=== PATIENT | female | born 1955 | race Caucasian/White ===

== ENCOUNTER 2016-10-01 16:57 | Emergency (ER) | payer MEDICAID ==
[~2016-10-01] VITALS: Ht 157.5 cm; Wt 67.9 kg
[~2016-10-01 16:57] MED LIST: CIPR500T4 PO; IBUP800T25 PO; METF-382 PO; METR500T PO; ULT50 PO
[2016-10-01 17:00] VITALS: Ht 157.5 cm; Wt 67.9 kg
[2016-10-01] MEDS ORDERED: BELLADONNA/PHENOBARBITAL TAB PO STA (20:39)
[2016-10-01] MEDS ORDERED: LIDOCAINE/MYLANTA 40 ML BTL PO STA (20:39)
[2016-10-01] MEDS ORDERED: FAMOTIDINE 20 MG TAB PO STA (20:39)
[2016-10-01 21:35] LABS: ALBUMIN 4.4 g/dl (3.3-4.9); POTASSIUM 4.5 mmol/L (3.5-5.1)
[2016-10-01 21:38] LABS: ALBUMIN/GLOBULIN RATIO 1.12; BILIRUBIN,INDIRECT 0.2 mg/dl (0-1.1); BILIRUBIN,TOTAL 0.2 mg/dl (0.2-1.3); CALCIUM 9.6 mg/dl (8.4-10.2); CREATININE 0.66 mg/dl (0.44-1.00); TOTAL PROTEIN 8.3 g/dl (6.1-8.1)
[2016-10-01 22:00] LABS: BASOPHILS % 0.4 % (0.0-2.0); EOSINOPHILS # 0.2 10^3/ul (0.0-0.5); EOSINOPHILS % 2.4 % (0.0-7.0); HEMATOCRIT 41.8 % (37.0-47.0); HEMOGLOBIN 14.1 g/dl (12.0-16.0); LYMPHOCYTES # 3.1 10^3/ul (0.8-2.9); LYMPHOCYTES % 33.9 % (15.0-51.0); MEAN CORPUSCULAR HEMOGLOBIN 29.4 pg (29.0-33.0); MEAN CORPUSCULAR HGB CONC 33.8 g/dl (32.0-37.0); MEAN PLATELET VOLUME 7.9 fl (7.4-10.4); MONOCYTE # 0.9 10^3/ul (0.3-0.9); MONOCYTES % 10.4 % (0.0-11.0); NEUTROPHIL # 4.8 10^3/ul (1.6-7.5); NEUTROPHILS % 52.9 % (39.0-77.0); PLATELET COUNT 448 10^3/UL (140-440); RED CELL DISTRIBUTION WIDTH 13.9 % (11.5-14.5)
[2016-10-01 22:03] LABS: CONDITION 1; NUCLEATED RED BLOOD CELLS # 0.2 10^3/ul (0.0-0.0)
[2016-10-01] MEDS ORDERED: SUCR1TAB56 PO (22:09)
--- NOTE | 2016-10-01 22:15 | ERD ---
ER Documentation Chief Complaint Date/Time DATE: 10/01/16 TIME: 22:12 Chief Complaint AP, HERE ON Aug C/O SAME, HAD LABS,CT HPI 61-year-old female who presents the emergency room with abdominal pain. The patient has a history of chronic abdominal pain for greater than 3 years. She describes it as left-sided upper and lower quadrant. The symptoms are usually worse with eating but somewhat constant. The patient was seen here on September 07 and diagnosed with acute diverticulitis no normal white count and normal CT where shown. The patient completed medications but still has symptoms. She denies any nausea vomiting or diarrhea, no constipation. No chest pain no exertional symptoms and no shortness of breath. ROS All systems reviewed and are negative except as per history of present illness. Medications Home Meds Active Scripts Sucralfate* (Carafate*) 1 Gm Tab, 1 GM PO QID Y for Abdominal pain for 30 Days, TAB Prov:AMANDA THOMPSON MD 10/01/16 Reported Medications Metformin Hcl* (Metformin Hcl*) 500 Mg Tablet, 500 MG PO WITH BREAKFAST DINNE, # 60 TAB 09/07/16 Ibuprofen* (Ibuprofen*) 800 Mg Tab, 800 MG PO TID Y for prn, TAB 09/07/16 Discontinued Scripts Tramadol HCl (Tramadol HCl) 50 Mg Tablet, 50 MG PO Q4 Y for PAIN, #20 TAB Prov:MARGY JOSE. 09/08/16 Metronidazole* (Flagyl*) 500 Mg Tablet, 500 MG PO TID for 7 Days, TAB Prov:MARGY JOSE 09/08/16 Ciprofloxacin Hcl* (Ciprofloxacin Hcl*) 500 Mg Tablet, 500 MG PO BID for 7 Days , TAB Prov:MARGY JOSE 09/08/16 Allergies Allergies: Coded Allergies: No Known Drug Allergies (Verified Allergy, Mild, 10/01/16) PMhx/Soc History of Surgery: Yes ( X2, cholecystectomy, splenectomy, partial pancreas removed) Anesthesia Reaction: No Hx Neurological Disorder: No Hx Respiratory Disorders: No Hx Cardiac Disorders: No Hx Psychiatric Problems: No Hx Miscellaneous Medical Probl: Yes (DM, HYPERLIPIDEMIA, GERD, diverticulitis, UTI) Hx Alcohol Use: No Hx Substance Use: No Hx Tobacco Use: No Smoking Status: Current every day smoker FmHx Family History: No diabetes Physical Exam Vitals Vital Signs Date Time Temp Pulse Resp B/P Pulse Ox O2 Delivery O2 Flow Rate FiO2 10/01/16 17:00 98.1 86 20 123/86 99 Physical Exam General: Well developed, well nourished, no acute distress Head: Normocephalic, atraumatic. Eyes: Pupils equally reactive, EOM intact ENT: Moist mucous membranes Neck: Supple, no lymphadenopathy Respiratory: Lungs clear bilaterally, no distress Cardiovascular: RRR, no murmurs, rubs, or gallops Abdominal: Soft, non-tender, non-distended, no peritoneal signs, negative Mercedes sign, no tenderness to McBurney's point : Deferred MSK: No edema, no unilateral swelling, 5/5 strength Neurologic: Alert and oriented, moving all extremities, normal speech, no focal weakness, no cerebellar signs Skin: No rash Psych: Normal mood Result Diagram: 10/01/16204410/01/162044 Results 24 hrs Laboratory Tests Test 10/01/16 20:45 Alanine Aminotransferase (ALT/SGPT) 31IU/L Albumin 4.4g/dl Albumin/Globulin Ratio 1.12 Alkaline Phosphatase 90IU/L Anion Gap 17 Aspartate Amino Transf (AST/SGOT) 31IU/L Basophils # 0.010^3/ul Basophils % 0.4% Blood Urea Nitrogen 15mg/dl Calcium Level 9.6mg/dl Carbon Dioxide Level 28mmol/L Chloride Level 104mmol/L Creatinine 0.66mg/dl Direct Bilirubin 0.00mg/dl Eosinophils # 0.210^3/ul Eosinophils % 2.4% Globulin 3.90g/dl Glucose Level 139mg/dl Hematocrit 41.8% Hemoglobin 14.1g/dl Indirect Bilirubin 0.2mg/dl Lipase 58U/L Lymphocytes # 3.110^3/ul Lymphocytes % 33.9% Mean Corpuscular Hemoglobin 29.4pg Mean Corpuscular Hemoglobin Concent 33.8g/dl Mean Corpuscular Volume 87.0fl Mean Platelet Volume 7.9fl Monocytes # 0.910^3/ul Monocytes % 10.4% Neutrophils # 4.810^3/ul Neutrophils % 52.9% Nucleated Red Blood Cells # 0.210^3/ul Nucleated Red Blood Cells % 2.0/100WBC Platelet Count 03373^3/UL Potassium Level 4.5mmol/L Red Blood Count 4.8010^6/ul Red Cell Distribution Width 13.9% Sodium Level 144mmol/L Total Bilirubin 0.2mg/dl Total Protein 8.3g/dl White Blood Count 9.010^3/ul Current Medications Medications (Trade) Dose Ordered Sig/Carolina Route PRN Reason Start Time Stop Time Status Last Admin Dose Admin Famotidine (Pepcid) 20 mg ONCE STAT PO 10/01/16 20:39 10/01/16 20:40 DC 10/01/16 20:54 Miscellaneous Medication (Gi Cocktail (2)) 40 ml ONCE STAT PO 10/01/16 20:39 10/01/16 20:40 DC 10/01/16 20:54 Belladonna/ Phenobarbital () 2 tab ONCE STAT PO 10/01/16 20:39 10/01/16 20:40 DC 10/01/16 20:54 Procedures/MDM LAB INTERPRETATION: No significant leukocytosis, no hepatobiliary obstruction, normal lipase MEDICAL DECISION MAKING: The patient presents with abdominal pain. It is left-sided. She has a benign abdominal exam. The patient has multiple visits the emergency room over the past several years for abdominal pain related issues. She has had 6 [address] scans during this timeframe all of which have been mostly unrevealing. The patient was treated clinically for acute diverticulitis in August but the patient's CT showed no evidence of acute diverticulitis and the patient had a normal white blood cell count. Today I do not believe that her symptoms are related to acute diverticulitis or perforation or abscess. The patient has a benign abdominal exam. I would like to avoid unnecessary repeat CT imaging given her multiple repeat CAT scans. ER COURSE: The patient's laboratory testing is unrevealing. The patient was given a GI cocktail with improved symptoms. It is most likely related to GI process. She does state a possible endoscopy and colonoscopy approximately 5 years ago. I believe it is extremely reasonable that the patient see her primary care physician receive referral to GI specialist for possible repeat endoscopy. This is possibly related to peptic ulcer disease versus gastritis versus H. pylori. Further imaging including MRI may be indicated if patient has continued pain though did this should be directed through your primary care doctor. I kept the patient and/or family informed of laboratory and diagnostic imaging results throughout the emergency room course. DISPOSITION PLAN: We discussed follow up with the patient's primary care doctor within 24 to 48 hours as needed. We also discussed return to the emergency room for worsening symptoms or worsening condition. Discharge Medications: Sucralfate Departure Diagnosis: Primary Impression: Abdominal pain Abdominal location: generalized Qualified Code: R10.84 - Generalized abdominal pain Condition: Stable Patient Instructions: Abdominal Pain Referrals: BUD PARKINSON MD, MORDO MD [facility] ([place]) Usted se jaimes hecho un examen mdico de control que le indica que no est en kristen condicin que requiera tratamiento urgente en el Departamento de Emergencia. Un estudio ms profundo y el tratamiento de diane condicin pueden esperar sin ningn riesgo hasta que usted sea atendida/o en el consultorio de diane mdico o kristen cl verónica. Es responsabilidad suya arreglar kristen edmond para el seguimiento del cathy. MANEJO DE CONDICIONES NO URGENTES EN EL FUTURO 1) Si usted tiene un mdico de atencin primaria: Usted debera llamar a diane mdico de atencin primaria antes de venir al departamento de emergencia. Despus de las horas de consultorio, diane doctor o diane asociado/a est disponible por telfono. El mdico o enfermero de murtaza en el servicio telefnico puede asesorarle por sania medio para atender el problema, o cathy contrario se puede programar kristen edmond. 2) Si usted no tiene un mdico de atencin primaria: Llame al mdico o clnica de referencia que aparece abajo kirit las horas de consultorio para hacer kristen edmond para que le vean. CLINICAS: [facility] [phone] [facility] 577 [phone] [address] [facility] [phone] [address] [facility] [phone] [facility] [place] [phone] [facility] [phone] [address] [facility] () Usted se jaimes hecho un examen mdico de control que le indica que no est en kristen condicin que requiera tratamiento urgente en el Departamento de Emergencia. Un estudio ms profundo y el tratamiento de diane condicin pueden esperar sin ningn riesgo hasta que usted sea atendida/o en el consultorio de diane mdico o kristen cl verónica. Es responsabilidad suya arreglar kristen edmond para el seguimiento del cathy. MANEJO DE CONDICIONES NO URGENTES EN EL FUTURO 1) Si usted tiene un mdico de atencin primaria: Usted debera llamar a diane mdico de atencin primaria antes de venir al departamento de emergencia. Despus de las horas de consultorio, diane doctor o diane asociado/a est disponible por telfono. El mdico o enfermero de murtaza en el servicio telefnico puede asesorarle por sania medio para atender el problema, o cathy contrario se puede programar kristen edmond. 2) Si usted no tiene un mdico de atencin primaria: Llame al mdico o condado institucions de referencia que aparece abajo kirit las horas de consultorio para hacer kristen edmond para que le vean. SI USTED NO PUEDE PAGAR PARA ADITYA UN MEDICO puede ir a: [facility] [address] [place] [address] [facility] [address] [place] [address] [facility] [address] [place] [address] [facility] [address] [place] [address] Additional Instructions: You should follow-up with her primary care physician as soon as possible. A referral to a GI specialist for your chronic abdominal pain is most important. Return for any fevers chills or uncontrolled pain. AMANDA THOMPSON MD Oct 01, 2016 22:15
[2016-10-01 22:16] VITALS: BP 125/78; PULSE 73; RESP 18; TEMP 98.3
== END 2016-10-01 22:17 | disposition home or self-care (01) ==
LOC: E/R 16:57
DX: R10.84 Generalized abdominal pain (principal); E11.9 Type 2 diabetes mellitus without complications; F17.210 Nicotine dependence, cigarettes, uncomplicated; Z79.84 Long term (current) use of oral hypoglycemic drugs
CPT/HCPCS: 80053; 83690; 85025; Z7502; Z7610; 99283

== ENCOUNTER 2017-11-21 20:23 | Emergency (ER) | END 2017-11-22 02:43 | disposition left against medical advice (07) ==

== ENCOUNTER 2017-11-22 09:34 | Emergency (ER) | END 2017-11-22 14:38 | disposition home or self-care (01) ==

== ENCOUNTER 2019-03-14 20:23 | Emergency (ER) | payer MEDICAID ==
[~2019-03-14] VITALS: Ht 152.4 cm; Wt 69.2 kg
[~2019-03-14 20:23] MED LIST changes: -CIPR500T4 PO; +CYCL5TAB PO; -IBUP800T25 PO; -METF-382 PO; +METF500T24 PO; -METR500T PO; +PRED20TA PO; -ULT50 PO
[2019-03-14 20:27] VITALS: Ht 152.4 cm; Wt 69.2 kg
[2019-03-14] MEDS ORDERED: IOHEXOL 300MG/ML 150 ML BTL ONE (23:02)
[2019-03-14] MEDS ORDERED: SOD CHLORIDE 0.9% 100 ML ONE (23:02)
--- NOTE | 2019-03-14 23:49 | ERD ---
ER Documentation Chief Complaint Chief Complaint LLQ ab pain today; hx fibroids HPI This is a 63-year-old female with a past medical history of hypertension, hyperlipidemia, diabetes, GERD, diverticulitis, recurrent UTIs, previous C- section, previous cholecystectomy, previous splenectomy, previous partial pancreatectomy, chronic abdominal pain, who is now presenting with progressive worsening left lower quadrant abdominal pain. She describes it as waxing and waning, moderate, sharp, aching, with no alleviating or exacerbating factors. The patient does not report any constipation or diarrhea. She does not endorse any black or bloody or tarry stools. She does reports burning dysuria with urinary frequency and urgency. She denies hematuria. She denies nausea or vomiting. The patient denies feeling sick recently. The patient denies fever or chills. The patient has had no headache or vision changes. The patient does not endorse neck or back pain. The patient denies lightheadedness or dizziness. The patient has had no chest pain or trouble breathing. The patient has had no focal deficits. The patient has had no weakness or numbness or tingling to the face or extremities. ROS All systems reviewed and are negative except as per history of present illness. Medications Home Meds Active Scripts Cyclobenzaprine Hcl* (Cyclobenzaprine Hcl*) 5 Mg Tablet, 5 MG PO Q8H PRN for spasm, #15 TAB Prov:YE DUMONT MD 11/22/17 Prednisone* (Prednisone*) 20 Mg Tab, 40 MG PO DAILY for 4 Days, TAB Prov:YE DUMONT MD 11/22/17 Reported Medications Metformin Hcl* (Metformin Hcl*) 500 Mg Tablet, 500 MG PO WITH BREAKFAST DINNE, #60 TAB 09/07/16 Allergies Allergies: Coded Allergies: No Known Drug Allergies (Verified Allergy, Mild, 11/22/17) PMhx/Soc History of Surgery: Yes ( X2, cholecystectomy, splenectomy, partial pancreas removed) Anesthesia Reaction: No Hx Neurological Disorder: No Hx Respiratory Disorders: No Hx Cardiac Disorders: Yes (Hypertension, hyperlipidemia, diabetes) Hx Psychiatric Problems: No Hx Miscellaneous Medical Probl: Yes (GERD, diverticulitis, UTI) Hx Alcohol Use: No Hx Substance Use: No Hx Tobacco Use: No Smoking Status: Never smoker FmHx Family History: diabetes Physical Exam Vitals Vital Signs Date Temp Pulse Resp B/P (MAP) Pulse Ox O2 O2 Flow FiO2 Time Delivery Rate 03/14/19 97.6 87 18 134/64 99 20:27 (87) Physical Exam Const: No acute distress Head: Atraumatic Eyes: Normal Conjunctiva ENT: Normal External Ears, Nose and Mouth. Neck: Full range of motion. No meningismus. Resp: Clear to auscultation bilaterally Cardio: Regular rate and rhythm, no murmurs Abd: Mild lower abdominal tenderness without guarding or rebound. Soft, non distended. Normal bowel sounds Skin: No petechiae or rashes Back: No midline or flank tenderness Ext: No cyanosis, or edema Neur: Awake and alert Psych: Normal Mood and Affect Result Diagram: 03/14/19222503/14/192225 Results 24 hrs Laboratory Tests Test 03/14/19 22:15 03/14/19 22:26 03/14/19 22:28 Urine Color STRAW Urine Clarity CLEAR Urine pH 7.0 Urine Specific Superior 1.015 Urine Ketones NEGATIVE mg/dL Urine Nitrite NEGATIVE mg/dL Urine Bilirubin NEGATIVE mg/dL Urine Urobilinogen NEGATIVE mg/dL Urine Leukocyte Esterase 1+ Kristen/ul Urine Microscopic RBC 6 /HPF Urine Microscopic WBC 17 /HPF Urine Squamous Epithelial Cells FEW /HPF Urine Hemoglobin 1+ mg/dL Urine Glucose NEGATIVE mg/dL Urine Total Protein NEGATIVE mg/dl White Blood Count 8.7 10^3/ul Red Blood Count 4.64 10^6/ul Hemoglobin 13.3 g/dl Hematocrit 40.0 % Mean Corpuscular Volume 86.2 fl Mean Corpuscular Hemoglobin 28.7 pg Mean Corpuscular 33.3 g/dl Hemoglobin Concent Red Cell Distribution Width 14.2 % Platelet Count 450 10^3/UL Mean Platelet Volume 9.1 fl Immature Granulocytes % 0.200 % Neutrophils % 41.1 % Lymphocytes % 45.3 % Monocytes % 9.6 % Eosinophils % 3.2 % Basophils % 0.6 % Nucleated Red Blood Cells % 0.0 /100WBC Immature Granulocytes # 0.020 10^3/ul Neutrophils # 3.6 10^3/ul Lymphocytes # 3.9 10^3/ul Monocytes # 0.8 10^3/ul Eosinophils # 0.3 10^3/ul Basophils # 0.1 10^3/ul Nucleated Red Blood Cells # 0.0 10^3/ul Sodium Level 140 mmol/L Potassium Level 4.3 mmol/L Chloride Level 107 mmol/L Carbon Dioxide Level 26 mmol/L Anion Gap 7 Blood Urea Nitrogen 20 mg/dl Creatinine 0.67 mg/dl Est Glomerular Filtrat > 60 mL/min Rate mL/min Glucose Level 133 mg/dl Calcium Level 9.3 mg/dl Total Bilirubin 0.3 mg/dl Direct Bilirubin 0.00 mg/dl Indirect Bilirubin 0.3 mg/dl Aspartate Amino 26 IU/L Transf (AST/SGOT) Alanine 22 IU/L Aminotransferase (ALT/SGPT) Alkaline Phosphatase 103 IU/L Total Protein 7.7 g/dl Albumin 4.2 g/dl Globulin 3.50 g/dl Albumin/Globulin Ratio 1.20 Lipase 75 U/L Bedside Glucose 148 mg/dL Current Medications Medications Dose Sig/Carolina Start Time Status Last (Trade) Ordered Route PRN Stop Time Admin Dose Reason Admin Sodium 100 ml @ ud STK-MED 03/14/19 DC 03/14/19 Chloride ONCE .ROUTE 23:02 23:15 03/14/19 23:03 Iohexol 150 ml STK-MED 03/14/19 DC 03/14/19 (Omnipaque ONCE .ROUTE 23:02 23:15 300mg/ ml) 03/14/19 23:03 Procedures/MDM MDM The patient's presentation warrants further investigation. Previous medical records, if available, were reviewed. LABS The patient's laboratory testing was obtained and reviewed. No emergent treatment was required unless described below. CBC: No E/o systemic infection or severe anemia or thrombocytopenia. Mild thrombocytosis, likely reactive versus elevated due to previous splenectomy. Chemistry: No E/o severe acidosis or alkalosis or renal failure or liver disease or diabetic ketoacidosis Lipase: No E/o pancreatitis Urine: E/o acute infection with hematuria IMAGING Imaging and Radiology interpretation reviewed. CT abdomen pelvis FINDINGS: The lung bases are clear of any infiltrate or nodule. No effusion is seen. Patient is status post bilateral augmentation mammoplasty. The liver is of normal size, contour and attenuation with no mass or ductal dilatation. Gallbladder has been removed. No adrenal abnormality is seen. The patient is post distal pancreatectomy and splenectomy. Kidneys enhance symmetrically and are of normal size and contour. No hydronephrosis, calculus or mass Is seen. Ureters are of normal course and caliber with no stone. No bladder mass or stone is present. Noted is a fibroid uterus. No adnexal mass is seen. There is no aneurysm. No adenopathy is present. No bowel mass or obstruction is present. There is diverticulosis. The appendix is normal. No phlegmon, ascites or pneumoperitoneum is visualized. The osseous structures are intact. IMPRESSION: No evidence of urolithiasis, obstructive uropathy, diverticulitis or appendicitis. Diverticulosis. Post distal pancreatectomy and splenectomy. Augmentation mammoplasty. Fibroid uterus. Cholecystectomy. Electronically viewed and signed by .Rafiq Leon MD, on 03/14/2019 23:24 TREATMENT/DISPOSITION The patient presents for lower abdominal pain, reportedly worse in the suprapubic and left lower quadrant areas. The patient does have evidence of diverticulosis but no diverticulitis. The patient does also have uterine fibroids, which could be related to today's episode. There is also evidence of urinary tract infection. I do feel the patient requires treatment of a urinary tract infection, but this may be completed in an outpatient setting. The patient does not have any evidence of peritonitis. The patient does not have clinical symptoms concerning for mesenteric ischemia or ischemic colitis. The pa tient does not have right upper quadrant tenderness, and I have low suspicion for gallstones, cholecystitis or biliary colic. The patient does not have any epigastric pain. I have low suspicion for gastritis, PUD or GERD. The patient does not have left upper quadrant tenderness. I have low suspicion for pancreatitis. The patient does not have any right lower quadrant tenderness, or periumbilical tenderness. I have low suspicion for appendicitis. The patient does not have any flank tenderness. The patient does not have gross hematuria. I have decreased suspicion for nephrolithiasis or renal colic. The patient does not have any palpable pulsatile mass or severe abdominal pain radiating to the back. I have low suspicion for aortic aneurysm, dissection or rupture. DISCHARGE Upon reevaluation of the patient, symptoms have improved. No emergent diagnoses were identified. At this time, I feel that the patient stable for discharge. The patient was instructed to follow-up with a primary care physician in 1-3 days. The patient will be given strict precautions with which to return to the emergency department. Prescriptions: Keflex, Pyridium The patient's blood pressure was elevated at greater than 120/80 while in the emergency department. The patient was otherwise stable with no evidence of hypertensive urgency or emergency. The patient does not require admission for blood pressure control. I have discussed with the patient the risks of hypertension. I have instructed the patient to return to the ER for any new or worsening symptoms including chest pain, shortness of breath, headache, blurred vision, confusion, nausea, vomiting or LOC. I have advised the patient to follow up with the primary care physician for outpatient monitoring and treatment for hypertension in 1-3 days. Disclaimer: Inadvertent spelling and grammatical errors are likely due to EHR/dictation software use and do not reflect on the overall quality of patient care. Note that the electronic time recorded on this note does not necessarily reflect the actual time of the patient encounter. Departure Diagnosis: Primary Impression: Urinary tract infection Urinary tract infection type: acute cystitis Hematuria presence: with hematuria Qualified Codes: N30.01 - Acute cystitis with hematuria Additional Impressions: Diverticulosis Abdominal pain Abdominal location: lower abdomen, unspecified Qualified Codes: R10.30 - Lower abdominal pain, unspecified Thrombocytosis Condition: Stable Patient Instructions: Abdominal Pain, Diverticulosis, Understanding Urinary Tract Infections (UTIs) Additional Instructions: Thank you for for coming to [facility] for your care today. Please ask your nurse or provider if you have questions about your care today and do not leave until all your questions have been answered. Please use any medications given as directed and follow-up with your doctor (or the doctor you were referred to) in the next 1-3 days. If you do not have a primary care doctor you may follow up at the [facility] or [facility] (listed below). You may also use motrin and tylenol as needed for fever and/or pain unless instructed otherwise by your provider or nurse. Indications for more urgent follow-up have been discussed, but you may return to the Emergency Department at ANY time for any worrisome or worsening symptoms. If you have abdominal pain, please know that no test or exam you received is perfect and you should follow up within 8 hours for continued pain. If you had any imaging studies today, such as an X-Ray or CT Scan, these studies will be reviewed later by a radiologist. You will be called if there are important findings that were not identified today, so make sure the contact information you provided at registration is correct. If you received any narcotic pain control medicine today, such as Vicodin, Morphine or Dilaudid, your coordination and judgment may be affected for a number of hours. Please do not drive or operate heavy machinery, and you may want someone to assist you at home. If you were given a prescription for narcotic medication, be aware that it is very addictive- use sparingly and only if necessary. PLEASE SEEK FURTHER EVALUATION AND MANAGEMENT AT YOUR DOCTORS OFFICE WITHIN THE NEXT 1-3 DAYS. IT IS YOUR RESPONSIBILITY TO MAKE AN APPOINTMENT FOR FOLOW-UP CARE. IF YOU HAVE A PRIMARY DOCTOR, PLEASE CALL THEIR OFFICE TO SCHEDULE AN APPO INTMENT FOR FOLLOW UP. IF YOU DO NOT HAVE A PRIMARY DOCTOR YOU CAN CALL OUR PHYSICIAN REFERRAL HOTLINE AT IF YOU CAN NOT AFFORD TO SEE A PHYSICIAN YOU CAN CHOSE FROM THE FOLLOWING [facility] CLINICS: [facility] [address] [facility] [address] [facility] [address] [facility] [address] [facility] [facility] [address] [facility]. [facility]. [address] YE SOLIS MD Mar 14, 2019 23:49
[2019-03-15] MEDS ORDERED: CEPH-443 PO (00:07)
[2019-03-15] MEDS ORDERED: PHEN-537 PO (00:07)
[2019-03-15 00:23] VITALS: BP 129/67; PULSE 73; RESP 16
== END 2019-03-15 00:25 | disposition home or self-care (01) ==
LOC: FTE 20:23 → E/R 03-15 00:25
DX: N30.01 Acute cystitis with hematuria (principal); I10 Essential (primary) hypertension; E11.9 Type 2 diabetes mellitus without complications; D47.3 Essential (hemorrhagic) thrombocythemia; K57.90 Diverticulosis of intestine, part unspecified, without perforation or abscess without bleeding; Z79.84 Long term (current) use of oral hypoglycemic drugs
CPT/HCPCS: 36415; 74177; 80053; 81001; 82962; 83690; 85025; Q9967; Z7502; Z7610